=== PATIENT | female | born 1965 | race Caucasian/White ===

== ENCOUNTER → 2020-04-29 | Day surgery (SDC) | payer BC ==
[~2020-04-29] MED LIST: LIBRIUM CAP 2525 MG PO; RELPAX40 MG PO; SERTRALINE HCL100 MG PO
== END | disposition home or self-care (01) ==
LOC: OR 07:06
PROVIDERS: Internal Medicine Gastroenterology
PROC: 0DB98ZX Excision of Duodenum, Via Natural or Artificial Opening Endoscopic, Diagnostic (ICD-10-PCS; principal; 2020-04-29 11:30)
PROC: 0DJD8ZZ Inspection of Lower Intestinal Tract, Via Natural or Artificial Opening Endoscopic (ICD-10-PCS; 2020-04-29 11:30)
DX: K95.09 Other complications of gastric band procedure (principal); K64.0 First degree hemorrhoids; R10.84 Generalized abdominal pain; R19.7 Diarrhea, unspecified; E66.3 Overweight; F41.8 Other specified anxiety disorders; Z88.2 Allergy status to sulfonamides; Z79.899 Other long term (current) drug therapy; Z20.828 Contact with and (suspected) exposure to other viral communicable diseases
CPT/HCPCS: J2001; J2704; J7040